=== PATIENT | female | born 1950 | race Caucasian/White ===

== ENCOUNTER 2018-02-02 09:28 | Emergency (ER) | payer OTHER ==
[~2018-02-02] VITALS: Ht 172.7 cm; Wt 110.6 kg
[2018-02-02 11:47] VITALS: BP 146/75
== END 2018-02-02 11:47 | disposition home or self-care (01) ==
LOC: EME 09:28
DX: S60.011A Contusion of right thumb without damage to nail, initial encounter (principal); S83.91XA Sprain of unspecified site of right knee, initial encounter; W01.0XXA Fall on same level from slipping, tripping and stumbling without subsequent striking against object, initial encounter; M18.11 Unilateral primary osteoarthritis of first carpometacarpal joint, right hand; M17.11 Unilateral primary osteoarthritis, right knee; Z88.0 Allergy status to penicillin; Z88.5 Allergy status to narcotic agent
CPT/HCPCS: 73140; 73564; 99281; 99283